=== PATIENT | female | born 1995 | race Caucasian/White ===

== ENCOUNTER 2021-06-03 16:06 | Emergency (ER) | payer BC, SELFPAY ==
--- NOTE | ~2021-06-03 | US_ITS ---
EXAMINATION: US OB <= 14 weeks fetus EXAM DATE: 06/03/2021 18:09 INDICATION: Left lower quadrant pain, rule out ectopic . 1st trimester. TECHNIQUE: Pelvic obstetrical transabdominal sonogram was performed by a technologist. There are mu ltiple grayscale and Doppler images available for interpretation. There are no earlier studies of th is gestation for comparison. FINDINGS: Uterus measures 8.7 x 6.7 x 5.3 cm. There is intrauterine gestation sac. pole with heart rate confirmed at 153 beats per minute. The 1.3 cm crown-rump length corresponds to estimated gestational age by ultrasound of 7 weeks 4 days, estimated date of confinement 01/16/2022. Yolk sac is identified. There is no sonographic evidence of subchorionic hemorrhage. The right ovary is iden tified, morphologically normal with flow confirmed. The left ovary is not identified. IMPRESSION: 1. Early live intrauterine gestation, age by ultrasound 7 weeks 4 days. 2. Left ovary not identified. Reviewed, dictated and finalized at location A.
[2021-06-03 16:12] VITALS: BP 116/77; PULSE 100; RESP 18; TEMP 37.3; O2SAT 98
[2021-06-03 16:35] LABS: Basophils Percent Auto 0.2 % (0.2-1.2); Eosinophils Absolute Auto 0.2 K/mm3 (0-0.3); Eosinophils Percent Auto 1.4 % (0-4.4); Hematocrit 38.2 % (37.0-47.0); Hemoglobin 13.4 g/dL (12.0-15.0); Immature Granulocyte Absolute 0.05 K/mm3 (0.00-0.031); Immature Granulocyte Percent A 0.4 % (0-0.5); Lymphocytes Absolute Auto 2.03 K/mm3 (0.9-3.2); Lymphocytes Percent Auto 16.2 % (18.3-44.2); Mean Corpuscular HGB Conc 35.1 g/dl (32-36); Mean Corpuscular Hemoglobin 31.5 pg (26-34); Mean Corpuscular Volume 89.7 fl (80-100); Mean Platelet Volume 8.5 fl (7.4-10.4); Monocytes Absolute Auto 0.8 K/mm3 (0.1-0.6); Monocytes Percent Auto 6.6 % (2.6-8.5); Neutrophils Absolute Auto 9.4 K/mm3 (1.3-6.7); Neutrophils Percent Auto 75.2 % (45.5-73.1); Platelet Count Result 304 k/mm3 (150-375); Red Blood Count 4.26 M/mm3 (4.2-5.4); Red Cell Distribution Width 11.9 % (11.5-14.5); White Blood Count 12.5 K/mm3 (4.5-10.0)
[2021-06-03 16:45] LABS: Alanine Aminotransferase 31 U/L (4-35); Albumin Level 4.2 g/dL (3.5-5.1); Alkaline Phosphatase 45 U/L (38-126); Anion Gap 8 mmol/L (8-16); Aspartate Amino Transferase 23 U/L (14-36); Bilirubin,Total 0.4 mg/dL (0.2-1.3); Blood Urea Nitrogen 10 mg/dL (7-17); Calcium 9.9 mg/dL (8.4-10.2); Carbon Dioxide 24 mmol/L (22-30); Chloride 105 mmol/L (98-107); Estimated CRCL calculation 112 ml/min; Estimated Glomerular Filt Rate > 60; Glucose 102 mg/dL (65-110); Potassium 3.8 mmol/L (3.4-5.0); Sodium 137 mmol/L (137-145)
[2021-06-03 16:56] LABS: Add Urine Microscopic? YES; Appearance Urine Cloudy (Clear); Bacteria Urine Trace /hpf; Bilirubin Urine Negative (Negative); Blood Urine Negative (Negative); Color Urine Yellow (Yellow); Glucose Urine UA Negative (Negative); Ketones Urine Negative (Negative); Leukocyte Esterase Ur Trace LEU/UL (Negative); Mucus Urine Heavy /lpf; Nitrate Urine Negative (Negative); Protein Urine Negative (Negative); RBC Urine 0-2 /hpf (0-2); Specific Grav Ur 1.026 (1.001-1.035); Squamous Epithelial Cell Urine Many /hpf (Few)
[2021-06-03 18:31] VITALS: BP 121/81; PULSE 74; RESP 16; O2SAT 100
--- NOTE | 2021-06-03 19:48 | ED.PREGNANCY ---
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 She reports pain as pressure, vaginal pain that radiates down her leg and into her back. She has not taken anything for her pain. She reports nausea but denies diarrhea, vomiting, fever or dysuria. She reports vaginal spotting last week. She has not been established for care yet. Her pain is currently 5/10. Related Data Allergies Allergy/AdvReac Type Severity Reaction Status Date / Time No Known Allergies Allergy Mild Verified 06/03/21 18:30 Review of Systems Review of Systems: All systems reviewed & are unremarkable except as noted in HPI and below PMFSH Past Medical History Medical History (Updated 06/04/21 @ 00:00 by Chan Cornell) Ovarian cyst Surgical History Surgical History (Updated 06/03/21 @ 19:51 by Albina Oscar MD) Hx of cholecystectomy Social History Social History (Updated 06/03/21 @ 19:51 by Albina Oscar MD) Smoking status: Never smoker Gender identity (if verbalized by the patient): Female Exam Const: General: no acute distress and alert Orientation/consciousness: patient oriented x3 Neck: Neck: no lymphadenopathy Resp: Effort & Inspection: normal respiratory effort and no retractions Auscultation: clear to auscultation bilaterally Cardio: Rate: regular rate Rhythm: regular rhythm Heart sounds: no murmurs GI: Auscultation: normal bowel sounds Other: mild diffuse abdominal tenderness, healing laparoscopy scars, cdi : Speculum Exam - Vagina: abnormal vaginal discharge yellow (copious yellow discharge) Skin: General skin exam: normal color Rashes: no rashes Neuro: General: patient oriented x3, moves all extremities and CN's II-XI intact bilaterally Psych: Mental Status: mental status grossly normal Affect: normal affect Course Reevaluation(s) Reevaluation #1: I discussed with patient plan to start antibiotics for abnormal vaginal discharge cervicitis. Patient has chronic issues with pelvic pain. She will be given rocephin and azithromycin. IUP found on exam. She does not appear to be in pain. This does not appear to be consistent with ovarian torsion. Date: 06/03/21 Time: 21:56 Vital Signs Vital signs: Vital Signs Temperature 99.2 F 06/03/21 16:12 Pulse Rate 100 06/03/21 16:12 Respiratory Rate 18 06/03/21 16:12 Blood Pressure 116/77 06/03/21 16:12 Pulse Oximetry 98 06/03/21 16:12 Temperature 99.2 F 06/03/21 16:12 Pulse Rate 74 06/03/21 22:18 Respiratory Rate 18 06/03/21 22:18 Blood Pressure 100/46 L 06/03/21 22:18 Pulse Oximetry 96 06/03/21 22:18 MDM - OB/Uterine Contractions Lab Data Attestation: I reviewed the patient's lab results. Result diagrams: 06/03/21 16:25 06/03/21 16:25 Labs: Lab Results 06/03/21 06/03/21 06/03/21 Range/Units 16:25 16:25 16:25 WBC 12.5 H (4.5-10.0) K/mm3 RBC 4.26 (4.2-5.4) M/mm3 Hgb 13.4 (12.0-15.0) g/dL Hct 38.2 (37.0-47.0) % MCV 89.7 (80-100) fl MCH 31.5 (26-34) pg MCHC 35.1 (32-36) g/dl RDW 11.9 (11.5-14.5) % Plt Count 304 (150-375) k/mm3 MPV 8.5 (7.4-10.4) fl Immature Gran % (Auto) 0.4 (0-0.5) % Neut % (Auto) 75.2 H (45.5-73.1) % Lymph % (Auto) 16.2 L (18.3-44.2) % Wright % (Auto) 6.6 (2.6-8.5) % Eos % (Auto) 1.4 (0-4.4) % Baso % (Auto) 0.2 (0.2-1.2) % Lymph # (Auto) 2.03 (0.9-3.2) K/mm3 Wright # (Auto) 0.8 H (0.1-0.6) K/mm3 Eos # (Auto) 0.2 (0-0.3) K/mm3 Baso # (Auto) 0.0 (0.0-0.1) K/mm3 Abs Immat Gran
[2021-06-03 20:04] VITALS: BP 101/56; BP 103/73; PULSE 67; PULSE 70
[2021-06-03] MEDS: ACETAMINOPHEN 500 MG TABLET 1000 MG PO (20:06)
[2021-06-03 20:07] VITALS: BP 100/72; PULSE 80
[2021-06-03 20:22] VITALS: BP 106/76; PULSE 82; RESP 18; O2SAT 100
[2021-06-03] MEDS: cefTRIAXone 1 GM VIAL 0.5 GM IM (21:16)
[2021-06-03] MEDS: LIDOCAINE HCL 1% LOCAL INJ 20 ML VIAL (21:16)
[2021-06-03] MEDS: AZITHROMYCIN 250 MG TABLET 1000 MG PO (22:17)
[2021-06-03 22:18] VITALS: BP 100/46; PULSE 74; RESP 18; O2SAT 96
== END 2021-06-03 22:51 | disposition home or self-care (01) ==
PROVIDERS: Emergency Medicine; Emergency Provider General Practice
DX: O26.891 Other specified pregnancy related conditions, first trimester (principal); R10.32 Left lower quadrant pain; O23.41 Unspecified infection of urinary tract in pregnancy, first trimester; O23.511 Infections of cervix in pregnancy, first trimester; Z3A.01 Less than 8 weeks gestation of pregnancy
CPT/HCPCS: 36415; 76801; 80053; 81001; 84702; 85025; 85461; 87070; 87491; 87591; 87808; 96372; 99284; A9270; J0696